=== PATIENT | female | born 1970 | race Caucasian/White ===

== ENCOUNTER 2016-06-04 10:18 | Inpatient (IN) | payer OTHER, MEDICAID ==
[2016-06-04] MEDS ORDERED: ACETAMINOPHEN 500 MG TAB ONE (11:52)
[2016-06-04] MEDS ORDERED: ACETAMINOPHEN 500 MG TAB PO ONE (11:58)
[2016-06-04] MEDS ORDERED: NS 1,000 ML IV ONE (12:11)
--- NOTE | 2016-06-04 12:11 | EDPHY ---
H & P Stated Complaint: SI/BIPOLAR AISHA Source: Patient Exam Limitations: No limitations - Personal History LMP (Females 10-55): IUD In Place Current Tetanus/Diphtheria Vaccine: Yes Tetanus Vaccine Date: 2011 - Medical/Surgical History Hx Asthma: No Hx Chronic Respiratory Disease: No Hx Diabetes: No Hx Cardiac Disease: No Hx Renal Disease: No Hx Cirrhosis: No Hx Alcoholism: No Hx HIV/AIDS: No Hx Splenectomy or Spleen Trauma: No Other PMH: depression, bipolar, hypothroidism - Social History Smoking Status: Never smoked HPI/ROS: CHIEF COMPLAINT: Suicidal thoughts, bipolar with aisha HISTORY OF PRESENT ILLNESS: long history of bipolar 1 with ongoing psychiatric care until recently. Over the past 2 days she has had some headache, aisha, feeling scared, and having suicidal thoughts. She says that she is so upset given her scenario that she wants to jump in front of a bus. She says she does not want to do so, that she wants to come in for help, but she would do so if needed. She has no chest pain or shortness of breath. No fever chills. No abdominal urinary complaints. No trauma or injury. She takes Seroquel for her bipolar, and she self adjust based on the recommendation of her psychiatrist. Her from 50 mg to 400 mg prescribed 3 mg last night. She has been awake only since this morning. She has no other associated complaints or modifying factors. Psychiatrist reportedly is no longer able to see her as he lost his license, but she has no details about this. REVIEW OF SYSTEMS: Ten systems reviewed and are negative unless otherwise noted in the HPI EXAMINATION General Appearance: Alert, no distress , anxious but cooperative. Non combative Head: normocephalic, atraumatic Eyes: Pupils equal and round, no conjunctival pallor or injection ENT, Mouth: Mucous membranes moist. Uvula midline. No lesions. . EOM intact Neck: Normal inspection, supple, non-tender Respiratory: Lungs are clear to auscultation. No wheezing rhonchi or crackles Cardiovascular: Regular rate and rhythm. No murmur. Pulses intact distally. Gastrointestinal: Abdomen is soft and nontender Back: non-tender, no bony abnormalities Neurological: A&O, nonfocal, normal gait . Strength 5/5 in all extremities. Ambulatory without abnormality Skin: Warm and dry, no rash Extremities: Nontender, no pedal edema Psychiatric: anxious but cooperative. Non combative. Does admit to suicidal ideation with intent to harm herself by jumping in front of a bus. Also admits to bipolar with aisha. DIFFERENTIAL DIAGNOSES: Including but not limited to Bipolar with manic episodes, suicidal ideation, suicidal intention, headache MDM: 12:10 p.m. Bipolar disorder with reports of aisha that appears to be more so of manic. She does admit to having suicidal thoughts but has no plan to do so. She does not have any intention to follow up on these, but I fear that she may actually act on this. Thus I placed her on M1 despite the fact that She is here voluntarily. She has no specific complaints other than mild headache as she describes her brain is being on fire. No trauma or injury. No other associated complaints at this time. She is resting comfortably and cooperative. Vital signs are stable. 2:00 p.m. patient has been medically cleared for psych evaluation. 3:50 p.m. I have a evaluated the patient. She is resting comfortably, in no acute distress. Her headache is better. We are still awaiting evaluation from [facility] for possible placement. She has no concerns or further questions at this time 5:15 p.m. patient's demeanor has significantly changed. She is yelling at the nurse, threatening bystanders, security and the RN. She is demanding to be seen by physician and demanding medication. I did get her to agree to sit down on anteriorly, then she had another outbreak. She is requesting medication very vigorously and aggressively. She is not cooperating as well as before. Security has been present for this. I have ordered Seroquel and Ativan p.o. for the patient. 5:40 p.m. notified by a social work specialist that the patient has declined her psychiatric evaluation at this time. She was very rude to the social work specialist. We will wait for her to calm down for the medication to take effect to re-attempt evaluation. At this time, Dr. Gamble will assume care of the patient. Please see his note for final disposition. SUPERVISION: This patient was independently evaluated without the aide of supervising physician. (Blake Flores) Constitutional: Initial Vital Signs Temperature (C) 36.4 C 06/04/16 10:21 Heart Rate 89 06/04/16 10:21 Respiratory Rate 18 06/04/16 10:21 Blood Pressure 146/109 H 06/04/16 10:21 O2 Sat (%) 96 06/04/16 10:21 O2 Delivery Mode Room Air Allergies/Adverse Reactions: lamotrigine [Lamotrigine] Allergy (Severe, Verified 06/04/16 10:20) Rito Charlie Syndrome Penicillins Allergy (Severe, Verified 06/04/16 10:20) Swelling/neck,face,throat Home Medications: Medication Instructions Recorded Levothyroxine [Synthroid 125 mcg 125 mcg PO DAILY@06 #30 tab 09/28/13 (*)] Ascorbic Acid [Vitamin C 500 mg 1,000 mg PO DAILY 06/04/16 (*)] Herbals/Supplements -Info Only 1 ea PO DAILY 06/04/16 Minto-3 Fatty Acids [Fish Oil 1000 1,000 mg PO DAILY 06/04/16 mg (*)] QUEtiapine FUMARATE [Seroquel 50 50 - 400 mg PO HS 06/04/16 mg (*)] Medical Decision Making ED Course/Re-evaluation: 0308: Patient signed over to me at midnight. Patient is here with longstanding history of bipolar, manic, on an M1 home. Still pending evaluation. 0700: patient signed over to Dr. Sampson at 7:00 a.m. shift change. (Hank Aldrich) I assumed care of the patient at 7 o'clock in the morning awaiting psychiatric disposition. The patient was given Ativan and Seroquel at 9 o'clock in the morning. The patient was quite aggressive with staff. 2:30 p.m.: The patient has been accepted for inpatient psychiatric admission at [facility] by Dr. Kevin Eid. I have filled out the EMTALA transfer form. (Geraldo Sampson) Care assumed from Dr. Wong at 3:00 p.m. with plan for psychiatric evaluation. Signed out to Dr. Aldrich at midnight. Patient is on a mental health hold. Psychiatric evaluation in progress. (Herman Gamble) Other Provider: The patient was evaluated and managed by the Physician Beater Worker Helper/ Nurse Practitioner. I discussed the patient's presentation and course with the midlevel provider with them and agree with the evaluation. My co-signature indicates that I have reviewed this chart and I agree with the findings and plan of care as documented. I am the secondary supervising physician. Patient's care assumed by Dr. Herman Gamble at 5:00 p.m.. (Deborah Wong) - Data Points Laboratory Results: Laboratory Results 06/04/16 13:10 06/04/16 13:10 06/05/16 13:10 TSH 0.825 uIU/mL (0.465-4.680) Medications Given: Discontinued Medications Acetaminophen (Tylenol) 500 mg PO EDNOW ONE Stop: 06/04/16 11:59 Last Admin: 06/04/16 12:15 Dose: 500 mg Sodium Chloride (Ns) 1,000 mls @ 0 mls/hr IV ONCE ONE PRN Reason: Wide Open Stop: 06/04/16 12:12 Last Admin: 06/04/16 13:15 Dose: 1,000 mls Lorazepam (Ativan) 1 mg PO EDNOW ONE Stop: 06/04/16 17:20 Last Admin: 06/04/16 17:22 Dose: 1 mg Lorazepam (Ativan) 1 mg PO EDNOW ONE Stop: 06/05/16 07:16 Last Admin: 06/05/16 08:08 Dose: 1 mg Quetiapine Fumarate (Seroquel) 200 mg PO ONCE ONE Stop: 06/04/16 17:17 Last Admin: 06/04/16 17:22 Dose: 200 mg Quetiapine Fumarate (Seroquel) 200 mg PO EDNOW ONE Stop: 06/05/16 07:11 Last Admin: 06/05/16 08:08 Dose: 200 mg Departure - Departure Disposition: [facility] IP Clinical Impression: Bipolar 1 disorder, Suicidal ideation Condition: Good
[2016-06-04 13:32] LABS: % IMMATURE GRANULYOCYTES 0.4 % (0.0-1.1); ABSOLUTE IMMATURE GRANULOCYTES 0.05 10^3/uL (0.00-0.10); ADD DIFF? NO; ADD MORPH? NO; ADD SCAN? NO; ATYPICAL LYMPHOCYTE FLAG 10 (0-99); FRAGMENT RBC FLAG 0 (0-99); HEMATOCRIT 41.4 % (38.0-47.0); LEFT SHIFT FLG 0 (0-99); LIPEMIA HEMOLYSIS FLAG 90 (0-99); MEAN CELL HEMOGLOBIN 28.6 pg (27.9-34.1); MEAN CELL HEMOGLOBIN CONCENTR. 33.8 g/dL (32.4-36.7); MEAN CELL VOLUME 84.7 fL (81.5-99.8); MEAN PLATELET VOLUME 10.9 fL (8.7-11.7); PLATELET CLUMPS FLAG 10 (0-99); PLATELET COUNT 280 10^3/uL (150-400); RED BLOOD CELL COUNT 4.89 10^6/uL (4.18-5.33)
[2016-06-04 14:02] LABS: ANION GAP 11 mEq/L (8-16); CALCIUM 8.9 mg/dL (8.5-10.4); CARBON DIOXIDE 25 mEq/l (22-31); CHLORIDE 105 mEq/L (97-110); CREATININE 0.7 mg/dL (0.6-1.0); ETHANOL SERUM < 10 mg/dL (0-10); GLOMERULAR FILTRATION RATE > 60; GLUCOSE 90 mg/dL (70-100); POTASSIUM 4.4 mEq/L (3.5-5.2); SALICYLATE < 1.0 mg/dL (2.0-20.0); SODIUM 141 mEq/L (134-144)
[2016-06-04] MEDS ORDERED: QUEtiapine FUMARATE 200 MG TAB PO ONE (17:16)
[2016-06-04] MEDS ORDERED: LORazepam 1 MG TAB ONE (17:19)
[2016-06-04] MEDS ORDERED: LORazepam 1 MG TAB PO ONE (17:19)
[2016-06-05] MEDS ORDERED: QUEtiapine FUMARATE 50 MG TAB PO ONE (07:10)
[2016-06-05] MEDS ORDERED: QUEtiapine FUMARATE 200 MG TAB ONE (07:12)
[2016-06-05] MEDS ORDERED: LORazepam 1 MG TAB ONE (07:13)
[2016-06-05] MEDS ORDERED: LORazepam 1 MG TAB PO ONE (07:15)
[2016-06-05] MEDS ORDERED: QUEtiapine FUMARATE 50 MG TAB PO PRN (18:06)
[2016-06-05] MEDS ORDERED: ACETAMINOPHEN 325 MG TAB PO PRN (18:07)
[2016-06-05] MEDS ORDERED: MAGNESIUM HYDROXIDE 30 ML UDCUP PO PRN (18:08)
[2016-06-05] MEDS ORDERED: NICOTINE POLACRILEX 2 MG GUM B PRN (18:09)
[2016-06-05] MEDS ORDERED: MAG HYDROX/AL HYDROX/SIMETH 30 ML UDCUP PO PRN (18:10)
[2016-06-05] MEDS ORDERED: diphenhydrAMINE 25 MG CAP PO PRN (18:38)
--- NOTE | 2016-06-05 18:55 | BCON ---
[f rep st] BEHAVIORAL HEALTH CONSULTATION INTERNAL MEDICINE CONSULTATION DATE OF CONSULTATION: 06/05/2016 REFERRING PHYSICIAN: Juju Schwab MD REASON FOR CONSULTATION: Medical clearance for inpatient behavioral health stay. HISTORY OF PRESENT ILLNESS: Ms. Samuel reports that she ran out of Seroquel, which she takes for bipolar disorder, contacted her psychiatrist and found that he had lost his license. She was scheduled to see her primary care provider in several days later and was planning to get a refill of her Seroquel, but she has had a manic episode. She was feeling scared and having suicidal thoughts, so she came to the emergency department, where she was placed on an M1 hold and evaluated by the mental health team, and admitted for further psychiatric care. PAST MEDICAL HISTORY: 1. Bipolar disorder. 2. Congenital hip dysplasia. 3. Hypothyroidism. 4. Cholecystitis. 5. Urinary tract infections. PAST SURGICAL HISTORY: She has had a hip replacement and a cholecystectomy. MEDICATIONS PRIOR TO ADMISSION: 1. Elkins-3 fatty acids 1000 mg p.o. daily. 2. Ascorbic acid 1000 mg p.o. daily. 3. Quetiapine 50-400 mg p.o. q.h.s. 4. Levothyroxine 125 mcg p.o. daily. 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 SOCIAL HISTORY: She lives alone in an apartment. She is a nonsmoker. She uses alcohol occasionally. She has disability income. She also reports that she has been working at [employer]. Previously, she worked at [employer] for 18 years. FAMILY HISTORY: Noncontributory. REVIEW OF SYSTEMS: She denies fevers, chills, weight gain, weight loss though she would like to lose weight, but is aware that Seroquel has caused weight gain and makes it difficult for her to lose weight. She denies nausea, vomiting , constipation, or diarrhea. She denies dysuria. She denies chest pain, dyspnea or cough and otherwise, a 10-point review of systems is negative. PHYSICAL EXAM: VITALS: Blood pressure is 130/79, heart rate is 72, respiratory rate 13, oxygen saturation is 95% on room air, temperature is 36.8. Her weight is 72.6 kg for a body mass index of 27.5. GENERAL: This is an overweight woman appears her chronologic age, cooperative, and in no acute distress. HEENT: Extraocular movements are intact. Pupils are equal, round, and reactive to light. Mucous membranes are moist. Dentition is in good condition. Her airway is not crowded. Mallampati class 1. NECK: Supple. HEART: There is a regular rate and rhythm with no murmurs, rubs, or gallops. LUNGS: Clear to auscultation bilaterally. ABDOMEN: Soft, nontender, nondistended with normoactive bowel sounds. EXTREMITIES: There is no cyanosis , clubbing, or edema. NEUROLOGIC: She is alert and oriented x3. Cranial nerves 2-12 are grossly intact. There is no focal weakness. Sensation is intact to light touch, and gait is within normal limits. LABORATORY STUDIES: Drawn in the emergency department: CBC showed a slightly high white blood cell count at 12.1 with a predominance of neutrophils however, there was no left shift. Serum chemistry revealed normal renal function and electrolytes. Beta hCG was negative for . Toxicology screen in the serum was negative for salicylates, acetaminophen, or ethyl alcohol, and in the urine was negative for any substances of abuse. ASSESSMENT AND RECOMMENDATIONS: 1. Bipolar disorder with recent manic episode, pending further evaluation and management per Psychiatry and the mental health team. 2. Hypothyroidism, most likely appropriately replaced. She is not showing any symptoms or signs of hyper or hypothyroidism, so repeating her TSH is not indicated at this time. 3. Overweight status. Consider exercising caution regarding medications which could further weight gain; however, her psychosocial stabilization takes priority at present. I see no medical contraindications to Ms. Samuel's continued stay on the inpatient behavioral health unit, or to any psychiatric medications or procedures. Thank you very much for including me in the care of Ms. Samuel, and please do not hesitate to contact me or the hospitalist service should there be need for further medical evaluation. /[id number]/MODL MTDD
[2016-06-05] MEDS: LORazepam 0.5 MG TAB PO PRN (20:09)
[2016-06-05] MEDS ORDERED: QUEtiapine FUMARATE 100 MG TAB PO SCH (21:00)
[2016-06-05] MEDS ORDERED: QUEtiapine FUMARATE 300 MG TAB PO SCH (21:00)
[2016-06-06] MEDS: ASCORBIC ACID 500 MG TAB PO SCH (08:31)
[2016-06-06] MEDS: LEVOTHYROXINE 125 MCG TAB PO SCH (08:31)
[2016-06-06] MEDS ORDERED: OMEGA-3 FATTY ACIDS 1,000 MG CAP PO SCH (09:00)
[2016-06-06] MEDS ORDERED: QUEtiapine FUMARATE 300 MG TAB PO SCH (09:24)
[2016-06-06] MEDS: OMEGA-3 FATTY ACIDS 1,000 MG CAP PO SCH (11:58)
[2016-06-06] MEDS: QUEtiapine FUMARATE 100 MG TAB PO SCH (13:41)
[2016-06-06] MEDS: LORazepam 0.5 MG TAB PO PRN (20:01)
[2016-06-07] MEDS: ASCORBIC ACID 500 MG TAB PO SCH (08:15)
[2016-06-07] MEDS: QUEtiapine FUMARATE 100 MG TAB PO SCH ×3 (08:15→21:14)
[2016-06-07] MEDS: OMEGA-3 FATTY ACIDS 1,000 MG CAP PO SCH (08:15)
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
[2016-06-07] MEDS: LEVOTHYROXINE 125 MCG TAB PO SCH (11:54)
--- NOTE | 2016-06-07 18:16 | SOAPPROG ---
SOAP Progress Note Assessment/Plan: Assessment: Plan: 06/07/16 18:15 Remains labile, irritable, impulsive. Will CCM, convert to voluntary status. Continue active d/c planning. Subjective: Pt seen, discussed with staff. Was irritable and insulting towards staff this morning, but cooperative and appropriate with me. She states she talked to her mother on the phone and "she told me to knock it off and keep my mouth shut." She is compliant with meds, initially insisting on a higher dose of Seroquel. I discussed with her that the current dose is plenty for now and she is in agreement. Objective: Vital Signs Temp Pulse Resp BP Pulse Ox 36.6 C 75 14 132/83 H 96 06/07/16 06:19 06/07/16 06:19 06/07/16 06:19 06/07/16 06:19 06/07/16 06:19 MSE: Calm, coop. Affect is constricted. Mood is "not good." TP linear. TC reveals no psychosis. Denies active SI. - Time Spent With Patient Time Spent With Patient: 25" - Pending Discharge Pending Discharge Within 24 Hours: No Pending Discharge Within 48 Hours: No ICD10 Worksheet Patient Problems: Problems Problem Status Diagnosed Severe depressed bipolar I disorder without psychotic features Active Bipolar 1 disorder Acute Suicidal ideation Acute
[2016-06-07] MEDS: QUEtiapine FUMARATE 300 MG TAB PO SCH (21:14)
[2016-06-08] MEDS: ASCORBIC ACID 500 MG TAB PO SCH (08:42)
[2016-06-08] MEDS: LEVOTHYROXINE 125 MCG TAB PO SCH (08:43)
[2016-06-08] MEDS: QUEtiapine FUMARATE 100 MG TAB PO SCH ×3 (08:43→21:13)
[2016-06-08] MEDS: OMEGA-3 FATTY ACIDS 1,000 MG CAP PO SCH (08:43)
--- NOTE | 2016-06-08 16:04 | SOAPPROG ---
SOAP Progress Note Assessment/Plan: Assessment: Plan: 06/07/16 18:15 Remains labile, irritable, impulsive. Will CCM, convert to voluntary status. Continue active d/c planning. 06/08/16 16:03 Doing much better. Will observe overnight, consider d/c tomorrow if all is well. Subjective: Pt seen, discussed with staff. Less irritable today. Slept well. Tolerating Seroquel well. Reports improved mood and near resolution of SI. More hopeful. Formulating d/c and f/u plans. Discussed work accommodations. Objective: Vital Signs Temp Pulse Resp BP Pulse Ox 36.3 C 71 16 117/77 96 06/08/16 06:00 06/08/16 06:00 06/08/16 06:00 06/08/16 06:00 06/08/16 06:00 MSE: Calm, coop. Affect is slightly blunted, stable, approp. Mood is "pretty good." TP linear. TC reveals no psychosis. Denies current SI. - Time Spent With Patient Time Spent With Patient: 25" - Pending Discharge Pending Discharge Within 24 Hours: No Pending Discharge Within 48 Hours: No ICD10 Worksheet Patient Problems: Problems Problem Status Diagnosed Severe depressed bipolar I disorder without psychotic features Active Bipolar 1 disorder Acute Suicidal ideation Acute
[2016-06-08] MEDS: QUEtiapine FUMARATE 300 MG TAB PO SCH (21:13)
[2016-06-09 06:21] VITALS: PULSE 68; RESP 14; TEMP 98.1; O2SAT 92
[2016-06-09 06:23] VITALS: BP 123/68
[2016-06-09] MEDS: OMEGA-3 FATTY ACIDS 1,000 MG CAP PO SCH (08:35)
[2016-06-09] MEDS: ASCORBIC ACID 500 MG TAB PO SCH (08:35)
[2016-06-09] MEDS: QUEtiapine FUMARATE 100 MG TAB PO SCH (08:35)
[2016-06-09] MEDS: LEVOTHYROXINE 125 MCG TAB PO SCH (08:35)
--- NOTE | 2016-06-09 14:38 | BDS ---
[f rep st] BEHAVIORAL HEALTH DISCHARGE SUMMARY REASON FOR ADMISSION: Patient is a 45-year-old, female, with history of bipolar disorder. She presented to our emergency department requesting admission due to what she described as "severe manic episode." She got into an argument with a co-worker earlier in the day and this led to her jerome gonzalez off the job very upset. She stated that prior to that she had been feeling more labile and had attempted to get medications from her psychiatrist but then found out that he was no longer in practi ce. While in the emergency department, she was extremely agitated and was acting out physically, cj bally and sexually, and spent over 24 hours there until she could be stabilized. Ultimately, they we re able to evaluate her and she was admitted for further evaluation and treatment. A full descriptio n of the events preceding admission can be found in her admission history dated 06/06/2016. ADMITTING DIAGNOSES: Bipolar 1 disorder, most recent episode mixed, severe, without psychosis; finan cial problems; lack of supports; work conflict; and chronic illness. Admitting physical examination performed by Dr. Amos Yang reveals no acute findings. ADMISSION LABORATORY: CBC shows a white count of 12.1. Serum chemistries are normal. TSH is normal . Beta hCG is negative. Urine drug screen shows no substances of abuse. Alcohol is less than detec table. HOSPITAL COURSE: Patient was admitted to the inpatient behavioral health unit on an M1 hold. Despit e her agitation in the ER, she was very cooperative and pleasant with us. She related her history of having been off medications for several years and then going back on to Seroquel recently. She stat es that her mood had been generally stable, but that she had a very strict regimen of exercise and re cently she started working due to some financial difficulties and that this caused extra stress. She focused on the conflict with a co-worker as a primary source of her stress, and states that this is what ultimately caused her to have the blow up. She requested to be put on a higher dose of Seroquel and was started at 600 mg, given 200 in the morning and 400 at night. She tolerated this well with no side effects. The patient's hospital course was uncomplicated. Her mood gradually stabilized, her sleep normalized , and she was no longer irritable. She interacted quite well with me on the day of discharge, john yed a euthymic and stable affect, and was forward thinking. She was having no thoughts of suicide. She was able to make a coherent plan for discharge including transferring to a different store and we filled out some short-term disability paperwork giving her another week off. CONDITION AT DISCHARGE: Stable. Her affect was euthymic, stable and appropriate. She was voicing n o thoughts of suicide. She was compliant with medications, forward thinking and appropriate. DISCHARGE DIAGNOSES: Bipolar 1 disorder, most recent episode mixed, severe, without psychosis; finan cial problems; lack of support; work conflict; and chronic illness. DISCHARGE MEDICATIONS: Seroquel 600 mg nightly, levothyroxine 125 mcg daily, omega-3 fatty acids 100 0 mg daily, vitamin C 1000 mg daily. DISPOSITION: Patient left the hospital of her own accord to return to her home. FOLLOWUP: Followup is with the [facility] who will come into her home on Saturday for an evaluati on. LEGAL COURSE: Patient was converted to a voluntary status at the expiration of her M1 hold. /[id number]/[id number]
== END 2016-06-09 11:10 | disposition home or self-care (01) | DRG 885 ==
LOC: BBEH 06-05 17:25
PROVIDERS: ADMIT Psychiatry & Neurology Behavioral Neurology & Neuropsychiatry; ATTEND Psychiatry & Neurology Psychiatry
DX: F31.13 Bipolar disorder, current episode manic without psychotic features, severe (principal); E03.9 Hypothyroidism, unspecified
CPT/HCPCS: 80305; G0480

== ENCOUNTER 2018-10-11 11:17 | Inpatient (IN) | payer OTHER | END 2018-10-20 09:15 | disposition home or self-care (01) | LOC: BBEH 10-12 02:37 ==

== ENCOUNTER 2018-10-12 00:13 | Emergency (ER) | payer OTHER | END 2018-10-12 02:27 ==